=== PATIENT | female | born 1995 | race Caucasian/White ===

== ENCOUNTER 2020-09-03 08:16 | Emergency (ER) | payer MEDICAID ==
[~2020-09-03] VITALS: Ht 160 cm; Wt 59.9 kg
[2020-09-03 08:26] VITALS: Ht 160 cm; Wt 59.9 kg
[2020-09-03 11:07] LABS: PLATELET COUNT 287 x10^3mcL (179-408)
[2020-09-03 11:58] LABS: RED CELL DISTRIBUTION WIDTH 15.3 % (12.3-17.7)
[2020-09-03] MEDS ORDERED: PRENATAL VITAM1 EAC1 PO (12:58)
[2020-09-03] MEDS ORDERED: [UNRECOGNIZED DRUG - OTHER] PO (12:58)
[2020-09-03 14:49] VITALS: BP 120/87
== END 2020-09-03 14:49 | disposition home or self-care (01) ==
LOC: ED 08:16
PROVIDERS: Emergency Medicine
DX: O20.9 Hemorrhage in early pregnancy, unspecified (principal)
CPT/HCPCS: J1460

== ENCOUNTER 2020-09-05 19:43 | Emergency (ER) | payer MEDICAID ==
[~2020-09-05] VITALS: Ht 160 cm; Wt 60.8 kg
[~2020-09-05 19:43] MED LIST: PRENATAL VITAM1 EAC1 PO; [UNRECOGNIZED DRUG - OTHER] PO
[2020-09-05 20:04] VITALS: BP 126/81; Ht 160 cm; Wt 60.8 kg
== END 2020-09-05 22:16 | disposition home or self-care (01) ==
LOC: ED 19:43
DX: O03.9 Complete or unspecified spontaneous abortion without complication (principal)